=== PATIENT | female | born 1990 | race Caucasian/White ===

== ENCOUNTER 2017-07-24 12:11 | Emergency (ER) | payer BC ==
[2017-07-24 12:27] VITALS: BP 155/79
[2017-07-24] MEDS ORDERED: Lidocaine 2% VISCOUS* 15 ML UDC PO ONE (12:51)
[2017-07-24] MEDS ORDERED: Al Hydrox/Mg Hydrox/Simet LIQ* 30 ML UDC PO ONE (12:52)
--- NOTE | 2017-07-24 13:00 | UC ---
Abdominal Pain Female HPI - HPI Summary HPI Summary: PT WITH H/O GERD HAS HAD EPIGASTRIC/LUQ PAIN FOR PAST 1-2 WEEKS. FEELS SLIGHTLY DIFFERENT THAN HER USUAL SX IN THAT THERE IS NO BURNING PAIN RADIATING UP HER ESOPHAGUS INTO THE BACK OF HER THROAT. TOOK TUMS WHICH SEEMED TO HELP A BIT. SX ARE WORSE ABOUT AN HOUR AFTER EATING. C/O FEELING FULL AND NAUSEATED. HAS HAD SOME INTERMITTENT LOOSE STOOLS. OTC PPI NOT THAT HELPFUL. DENIES URINARY SX. - History of Current Complaint Chief Complaint: UCGI Stated Complaint: ABD PAIN NAUSEA Time Seen by Provider: 07/24/17 12:32 Hx Obtained From: Patient Hx Last Menstrual Period: pt has implanon and states not getting a menses Onset/Duration: Gradual Onset, Lasting Weeks, Still Present Timing: Intermittent Episodes Lasting: - ABOUT AN HOUR Severity Initially: Moderate Severity Currently: Moderate Pain Intensity: 6 Pain Scale Used: 0-10 Numeric Location: Discrete At: LUQ, Epigastric Radiates: No Character: Burning, Sharp Aggravating Factor(s): Food Alleviating Factor(s): Antacids Associated Signs and Symptoms: Positive: Nausea, Diarrhea Allergies/Adverse Reactions: Allergies Allergy/AdvReac Type Severity Reaction Status Date / Time Estrogens Allergy rock Verified 07/24/17 12:27 bottom depression PMH/Surg Hx/FS Hx/Imm Hx GI/ History: Gastroesophageal Reflux - Surgical History Surgical History: None - Family History Known Family History: Positive: Hypertension - Social History Alcohol Use: Occasionally Substance Use Type: None Smoking Status (MU): Never Smoked Tobacco Review of Systems Constitutional: Negative Respiratory: Negative Cardiovascular: Negative Gastrointestinal: Abdominal Pain, Nausea Genitourinary: Negative All Other Systems Reviewed And Are Negative: Yes Physical Exam Triage Information Reviewed: Yes Appearance: Well-Appearing, No Pain Distress, Well-Nourished Vital Signs: Initial Vital Signs Temp 98.5 F 07/24/17 12:13 Pulse 86 07/24/17 12:13 Resp 16 07/24/17 12:13 BP 155/79 07/24/17 12:13 Pulse Ox 98 07/24/17 12:13 Vital Signs Reviewed: Yes Eyes: Positive: Conjunctiva Clear ENT: Positive: Hearing grossly normal Neck: Positive: Supple Respiratory Exam: Normal Cardiovascular Exam: Normal Abdomen Description: Positive: Soft, Other: - TTP PERIUMBILICAL, EPIGASTRIC, LUQ. NO REBOUND OR RIGIDITY. Negative: CVA Tenderness (R), CVA Tenderness (L), Distended, Guarding Bowel Sounds: Positive: Present Musculoskeletal: Positive: No Edema Neurological: Positive: Alert Psychological: Positive: Age Appropriate Behavior Skin: Negative: rashes Re-Evaluation - Re-Evaluation First Eval Re-Evaluation Time: 13:30 - FEELS BETTER AFTER GI COCKTAIL Change: Improved Abd Pain Female Course/Dx - Differential Dx/Diagnosis Provider Diagnoses: GASTRITIS Discharge - Discharge Plan Condition: Stable Disposition: HOME Prescriptions: Esomeprazole(NF) [NexIUM(NF)] 40 mg PO DAILY #30 cap Ondansetron ODT TAB* [Zofran Odt TAB*] 4 mg PO Q6H PRN #20 tab.odt PRN Reason: Nausea/Vomiting Patient Education Materials: Gastritis (ED) Referrals: [facility] [Provider Group] - 1 Week Additional Instructions: YOU HAD SOME IMPROVEMENT IN YOUR SYMPTOMS AFTER A GI COCKTAIL THAT INCLUDED VISCOUS LIDOCAINE AND MAALOX PLUS. TRY TAKING NEXIUM DAILY TO SEE IF YOUR SYMPTOMS CAN BE CONTROLLED. TAKE THE REFLUX MEDICINE IN THE MORNING (IDEALLY AT LEAST 30 MINUTES BEFORE YOU EAT). EAT SLOWLY. STAY UPRIGHT AT LEAST 30 MINUTES AFTER EATING. EAT SMALLER, MORE FREQUENT MEALS OPPOSED TO LARGE INFREQUENT MEALS. AVOID POSSIBLE TRIGGER FOODS - GREASY, SPICY, ACIDIC FOODS. CAFFEINE, ALCOHOL. FOLLOW-UP WITH GI IN 1-2 WEEKS FOR FURTHER EVALUATION OF YOUR SYMPTOMS.
== END 2017-07-24 13:40 | disposition home or self-care (01) ==
LOC: UCEAST 12:11
DX: K29.70 Gastritis, unspecified, without bleeding (principal); Z32.02 Encounter for pregnancy test, result negative; Z88.8 Allergy status to other drugs, medicaments and biological substances
CPT/HCPCS: 81003; 84702; 99212; A9270-GY; G0463